=== PATIENT | male | born 2000 | race African-American/Black ===

== ENCOUNTER 2024-12-20 19:49 | Emergency (ER) | payer SELFPAY ==
[2024-12-20] MEDS ORDERED: Metoclopramide HCl 10 MG (2 mL) VIAL ONE (20:16)
[2024-12-20] MEDS ORDERED: diphenhydrAMINE 50 MG/ML VIAL ONE (20:16)
[2024-12-20] MEDS ORDERED: Ketorolac Tromethamine 30 MG (1 mL) VIAL ONE ×2 (20:17→20:37)
[2024-12-20 20:22] LABS: #Basophils Less than 0.03 10x3/uL (0.0-0.2); #Eosinophils 0.04 10x3/uL (0.0-0.7); #Monocytes 1.19 10x3/uL (0.11-0.59); #Neutrophils 6.81 10x3/uL (1.40-6.50); %Basophils 0.2 % (0.0-1.0); %Eosinophils 0.4 % (0.0-10.0); %Lymphocytes 19.5 % (21.0-51.0); %Monocytes 11.8 % (0.0-10.0); %Neutrophils 67.8 % (42.0-75.0); Hematocrit 45.2 % (42.0-52.0); Hemoglobin 15.3 g/dL (14.0-18.0); Mean Corpuscular Hemoglobin 29.2 pg (27.0-31.0); Mean Corpuscular Volume 86.3 fL (78.0-98.0); Platelet Count 226 10x3/uL (130-400); Red Blood Cell (RBC) Count 5.24 mill/uL (4.70-6.10); White Blood Cell (WBC) Count 10.05 10x3/uL (4.8-10.8)
[2024-12-20] MEDS ORDERED: Dexamethasone 10 MG/ML VIAL ONE (20:34)
[2024-12-20] MEDS ORDERED: diphenhydrAMINE 25 MG CAP ONE (20:35)
[2024-12-20 20:36] LABS: Acetaminophen Less than 10 mcg/mL (Less than 10); Salicylate Less than 8.0 mg/dL (Less than 8.0)
[2024-12-20 20:38] LABS: ALT (SGPT) 20 U/L (Less than 45); AST (SGOT) 28 U/L (11-34); Albumin 4.6 g/dL (3.1-4.5); Alkaline Phosphatase 80 U/L (40-110); Anion Gap 15 mmol/L (10-20); BUN (Urea Nitrogen) 20 mg/dL (8.9-20.6); Bilirubin, Total 0.6 mg/dL (0.3-1.2); CK (CPK) 501 U/L (30-200); Calc. Creatinine Clearance 0 mL/min (70-130); Calcium 9.3 mg/dL (7.8-10.44); Carbon Dioxide 22 mmol/L (22-29); Chloride 106 mmol/L (98-107); Globulin 3.3 g/dL (2.4-3.5); Glucose 130 mg/dL (70-105); Potassium 3.4 mmol/L (3.5-5.1); Sodium 140 mmol/L (136-145)
[2024-12-20 21:20] LABS: Cocaine Metabolite Screen Negative (Negative); THC/Cannabinoid Screen PRELIM POSITIVE (Negative); Tricyclic Screen Negative (Negative)
== END 2024-12-20 22:12 | disposition home or self-care (01) ==
LOC: ERS 19:49
DX: F12.10 Cannabis abuse, uncomplicated (principal); R51.9 Headache, unspecified
CPT/HCPCS: 36415; 70450; 80053; 80306; 80307; 82550; 85025; 96372; J1100; J1200; J1885; J2765; J2919; Q0162

== ENCOUNTER 2024-12-21 07:18 | Emergency (ER) | payer SELFPAY | END 2024-12-21 07:32 | disposition home or self-care (01) | LOC: ERS 07:18 | DX: R51.9 Headache, unspecified (principal); F12.90 Cannabis use, unspecified, uncomplicated | CPT/HCPCS: 99283 ==